=== PATIENT | female | born 1995 | race Caucasian/White ===

== ENCOUNTER 2016-07-08 15:18 | Emergency (ER) | payer BC ==
[2016-07-08] MEDS: Albuterol 0.083% 2.5 MG/3 ML Neb Soln NEB ONE (15:37)
[2016-07-08] MEDS: Famotidine 20 MG/2 ML SDV IVPUSH ONE (15:48)
[2016-07-08] MEDS: EPINEPHrine 1:1000 1 MG/ML SDV IM ONE (15:48)
[2016-07-08] MEDS: Sodium Chloride 0.9% 10 ML Syringe FLUSH PRN (15:49)
[2016-07-08] MEDS: LORazepam 2 MG/ML MDV IVPUSH ONE ×2 (15:49→16:30)
[2016-07-08] MEDS: Loratadine 10 MG Tab PO ONE (15:49)
[2016-07-08] MEDS: Sodium Chloride 0.9% 500 ML IV ONE (15:50)
--- NOTE | 2016-07-08 15:57 | EDM.PDOC ---
ED HPI Allergic Reaction - General Chief Complaint: Allergic Reaction Stated Complaint: CAME IN FROM THE CLINIC Time Seen by Provider: 07/08/16 15:19 Source of Information: Reports: Patient, RN notes reviewed - History of Present Illness INITIAL COMMENTS - FREE TEXT/NARRATIVE: 21-year-old female has been referred here from the walk-in clinic for perioral swelling, swelling of the tongue and difficulty breathing. This just started about 20-30 minutes ago. Because of a prior severe allergic reaction she did go immediately to the walk-in clinic. They did treat her immediately with 50 mg Benadryl by mouth, Solu-Medrol 125 mg IM, and EpiPen x1. Patient was then brought here. SHe continues to have swelling primarily of the right lower lip, tongue and perceived itchiness scratchiness and irritation of her throat along with shortness of breath. Skin of her upper body does feel somewhat itchy. So far no hives or uticaria. She does have history of a number of sensitivities and allergies, no documented history of asthma. She has Had some mild cough and cold symptoms for a week or 2. No recent fever or chills. No recent sore throat up until this afternoon. - Related Data Allergies/ADRs: Allergies Allergy/AdvReac Type Severity Reaction Status Date / Time latex Allergy Anaphylactic Verified 07/08/16 15:26 Shock iv contrast Allergy Anaphylactic Uncoded 07/08/16 15:26 Shock Home Meds: Home Meds ALPRAZolam [Alprazolam ER] 1 mg PO DAILY PRN 07/08/16 [History] Albuterol Sulfate [Proair Hfa] 2 puff IH Q4H PRN 07/08/16 [History] EPINEPHrine [Epipen] 0.3 mg IM ONETIME #1 pen 07/08/16 [Rx] Sertraline HCl [Zoloft] 100 mg PO DAILY 07/08/16 [History] Past Medical History Genitourinary History: Reports: Pyelonephritis Psychiatric History: Reports: Anxiety - Past Surgical History Female Surgical History: Reports: Ureteral stent Social & Family History - Tobacco Use Smoking Status *Q: Never Smoker - Caffeine Use Caffeine Use: Reports: Coffee - Recreational Drug Use Recreational Drug Use: No ED ROS ALLERGIC REACTION - Review of Systems Review Of Systems: See Below Constitutional: Denies: fever, chills HEENT: Reports: Sinus problem (there has been mild nasal and sinus congestion), Throat pain (throat feels scratchy), Throat swelling (throat feels swollen), Other (tongue feels swollen, swelling of the right lower lip) Respiratory: Reports: shortness of breath, wheezing Cardiovascular: Denies: Chest pain GI/Abdominal: Denies: Abdominal pain Musculoskeletal: Denies: shoulder pain, arm pain Skin: Denies: rash, erythema Neurological: Reports: dizziness ED EXAM GENERAL NO PERIP PULSE - Physical Exam Exam: See Below General Appearance: alert, anxious Eye Exam: bilateral eye: PERRL Nose: normal inspection Throat/Mouth: Normal oropharynx, No airway compromise, Other (there may be slight swelling of the tongue) Head: facial swelling (there is swelling of the right lower lip, no other facial swelling visible at this time) Respiratory/Chest: lungs clear, respiratory distress (moderate tachypnea). No: rhonchi, wheezing, stridor Cardiovascular: regular rate, rhythm Extremities: normal inspection, normal range of motion Neurological: alert, oriented, no motor/sensory deficits Skin Exam: Warm, Dry, Normal color, No rash, Other (no rash or hives at time of initial exam) Course - Vital Signs Last Recorded V/S: Last Vital Signs Temp 97.3 F 07/08/16 15:20 Pulse 89 07/08/16 18:05 Resp 21 H 07/08/16 18:05 BP 119/71 07/08/16 18:05 Pulse Ox 99 07/08/16 18:05 - Orders/Labs/Meds Orders: Active Orders 24 hr Category Date Time Status Peripheral IV Care [RC] . DIRECTED Care 07/08/16 15:26 Active RT Aerosol Therapy [RC] ASDIRECTED Care 07/08/16 15:33 Active Sodium Chloride 0.9% [Saline Flush] Med 07/08/16 15:26 Active 10 ml FLUSH ASDIRECTED PRN Peripheral IV Insertion Adult [OM.PC] Stat Oth 07/08/16 15:26 Ordered Medication Orders Sodium Chloride (Saline Flush) 10 ml FLUSH ASDIRECTED PRN PRN Reason: Keep Vein Open Last Admin: 07/08/16 15:49 Dose: 10 ml Meds: Medications Generic Name Dose Route Start Last Admin Trade Name Freq PRN Reason Stop Dose Admin Sodium Chloride 10 ml 07/08/16 15:26 07/08/16 15:49 Saline Flush FLUSH 10 ml ASDIRECTED PRN Administration Keep Vein Open Discontinued Medications Generic Name Dose Route Start Last Admin Trade Name Kim PRN Reason Stop Dose Admin Albuterol 2.5 mg 07/08/16 15:33 07/08/16 15:37 Proventil Neb Soln NEB 07/08/16 15:34 2.5 mg ONETIME ONE Administration Epinephrine HCl 0.3 mg 07/08/16 15:26 07/08/16 15:48 Adrenalin 1:1000 IM 07/08/16 15:27 0.3 mg ONETIME ONE Administration Famotidine 20 mg 07/08/16 15:26 07/08/16 15:48 Pepcid IVPUSH 07/08/16 15:27 20 mg ONETIME ONE Administration Sodium Chloride 500 mls @ 999 mls/hr 07/08/16 15:26 07/08/16 15:50 Normal Saline IV 07/08/16 15:56 999 mls/hr .BOLUS ONE Administration Loratadine 10 mg 07/08/16 15:26 07/08/16 15:49 Claritin PO 07/08/16 15:27 10 mg ONETIME ONE Administration Lorazepam 0.5 mg 07/08/16 15:33 07/08/16 15:49 Ativan IVPUSH 07/08/16 15:34 0.5 mg ONETIME ONE Administration Lorazepam 0.5 mg 07/08/16 16:26 07/08/16 16:30 Ativan IVPUSH 07/08/16 16:27 0.5 mg ONETIME ONE Administration - Re-Assessments/Exams Free Text/Narrative Re-Assessment/Exam: 07/08/16 16:05: patient was treated at walk-in clinic as documented with Benadryl 50 mg by mouth, EpiPen x1, Solu-Medrol 125 mg IM. We have further treated her with Claritin 10 mg by mouth, Pepcid 20 mg IV, a further dose of epi 0.3 mils 1-1000 IM and also Ativan 0.5 mg IV. The swelling of her mouth has lessened mildly. Her throat still does feel somewhat scratchy but improved from arrival. No we also did give an albuterol treatment a short time ago and that also seems to help her. Order her chest feels tight, she is still very anxious and actually hyperventilating more now from arrival. With that her hands are known from the Ativan was just given a few minutes ago so that really has not had time to start working for her. 16:20. The numbness of her hands are somewhat better. Pharynx continues to not be inflamed. Her tongue is not visibly swollen at this time. She continues to have some swelling of the right lower lip. Continues to have no rash or erythema of her skin. Continues to move air well with sats of 100% but still tachypneic and still moderately anxious. We'll give further dose of 0.5 mg Ativan IV. 07/08/16 18:14. breathing completely back to normal, her throat feels like that also is back to normal. She continues to have no rash or hives. Her skin itchiness is long gone. Her chest no longer feels tight. She does feel up to going home, discharge instructions as documented Departure - Departure Time of Disposition: 18:19 Disposition: Home, Self-Care 01 Condition: fair Clinical Impression: Allergic reaction Qualifiers: Encounter type: initial encounter Qualified Code(s): T78.40XA - Allergy, unspecified, initial encounter Prescriptions: EPINEPHrine [Epipen] 0.3 mg IM ONETIME #1 pen Instructions: Anaphylactic Reaction, [id number] Referrals: Sarah Thompson PA-C [Primary Care Provider] - Forms: ED Department Discharge Additional Instructions: Claritin 10 mg daily tomorrow and Tuesday, prednisone 40 mg this evening and then 40 mg again tomorrow morning, 20 mg Tuesday morning, avoid further exposure to potential allergic substances, followup clinic as needed return to ED as needed, prescription has been provided for EpiPen to use if needed for any further severe allergic reaction - My Orders Last 24 Hours: My Active Orders 07/08/16 15:26 Peripheral IV Care [RC] . DIRECTED Sodium Chloride 0.9% [Saline Flush] 10 ml FLUSH ASDIRECTED PRN Peripheral IV Insertion Adult [OM.PC] Stat 07/08/16 15:33 RT Aerosol Therapy [RC] ASDIRECTED - Assessment/Plan Last 24 Hours: My Active Orders 07/08/16 15:26 Peripheral IV Care [RC] . DIRECTED Sodium Chloride 0.9% [Saline Flush] 10 ml FLUSH ASDIRECTED PRN Peripheral IV Insertion Adult [OM.PC] Stat 07/08/16 15:33 RT Aerosol Therapy [RC] ASDIRECTED
[2016-07-08 18:23] VITALS: BP 119/71
== END 2016-07-08 18:30 | disposition home or self-care (01) ==
LOC: JD.ED 15:18
DX: T78.40XA Allergy, unspecified, initial encounter (principal); Z91.040 Latex allergy status; Z88.7 Allergy status to serum and vaccine; Z79.899 Other long term (current) drug therapy
CPT/HCPCS: 94664; 96361; 96372; 96374; 96375; 96376; 99285; A9270; J0171; J2060; J7040; J7050; 99284

== ENCOUNTER 2016-09-30 16:48 | Emergency (ER) | payer BC ==
[2016-09-30] MEDS ORDERED: Sodium Chloride 0.9% 10 ML Syringe FLUSH PRN (16:57)
[2016-09-30] MEDS ORDERED: Famotidine 20 MG/2 ML SDV IVPUSH ONE (16:57)
[2016-09-30] MEDS ORDERED: methylPREDNISolone Sodium Succinate 125 MG/2 ML SDV IVPUSH ONE (16:57)
[2016-09-30] MEDS ORDERED: diphenhydrAMINE 50 MG/ML SDV IVPUSH ONE (16:57)
[2016-09-30] MEDS ORDERED: methylPREDNISolone Sodium Succinate 40 MG/1 ML SDV IVPUSH ONE (17:02)
--- NOTE | 2016-09-30 17:02 | EDM.PDOC ---
<RamiroDarrell Omer - Last Filed: 09/30/16 17:01> ED HPI GENERAL MEDICAL PROBLEM - General Chief Complaint: Allergic Reaction Stated Complaint: ALLERGIC REACTION Time Seen by Provider: 09/30/16 17:01 - Related Data Allergies Allergy/AdvReac Type Severity Reaction Status Date / Time Iodinated Contrast Media - Allergy Anaphylactic Verified 07/09/16 06:47 Oral and Shock latex Allergy Anaphylactic Verified 07/08/16 15:26 Shock Home Meds: Home Meds ALPRAZolam [Alprazolam ER] 1 mg PO DAILY PRN 07/08/16 [History] Albuterol Sulfate [Proair Hfa] 2 puff IH Q4H PRN 07/08/16 [History] EPINEPHrine [Epipen] 0.3 mg IM ONETIME #1 pen 07/08/16 [Rx] Sertraline HCl [Zoloft] 100 mg PO DAILY 07/08/16 [History] Past Medical History Respiratory History: Reports: Other (See Below) Other Respiratory History: history of similar allergic reactions unknown cause Genitourinary History: Reports: Pyelonephritis Psychiatric History: Reports: Anxiety - Past Surgical History Female Surgical History: Reports: Ureteral Stent Social & Family History - Tobacco Use Smoking Status *Q: Never Smoker - Caffeine Use Caffeine Use: Reports: Coffee, Soda - Recreational Drug Use Recreational Drug Use: No Course - Vital Signs Last Recorded V/S: Last Vital Signs Temp 97.9 F 09/30/16 16:51 Pulse 127 H 09/30/16 16:51 Resp 18 09/30/16 16:51 BP 146/91 H 09/30/16 16:51 Pulse Ox 100 09/30/16 16:51 - Orders/Labs/Meds Orders: Active Orders 24 hr Category Date Time Status Peripheral IV Care [RC] . DIRECTED Care 09/30/16 16:57 Active Sodium Chloride 0.9% [Saline Flush] Med 09/30/16 16:57 Active 10 ml FLUSH ASDIRECTED PRN Peripheral IV Insertion Adult [OM.PC] Stat Oth 09/30/16 16:57 Ordered Medication Orders Sodium Chloride (Saline Flush) 10 ml FLUSH ASDIRECTED PRN PRN Reason: Keep Vein Open Last Admin: 09/30/16 17:17 Dose: 10 ml Meds: Medications Generic Name Dose Route Start Last Admin Trade Name Freq PRN Reason Stop Dose Admin Sodium Chloride 10 ml 09/30/16 16:57 09/30/16 17:17 Saline Flush FLUSH 10 ml ASDIRECTED PRN Administration Keep Vein Open Discontinued Medications Generic Name Dose Route Start Last Admin Trade Name Emanuelq PRN Reason Stop Dose Admin Diphenhydramine HCl 50 mg 09/30/16 16:57 09/30/16 17:07 Benadryl IVPUSH 09/30/16 16:58 50 mg ONETIME ONE Administration Famotidine 20 mg 09/30/16 16:57 09/30/16 17:10 Pepcid IVPUSH 09/30/16 16:58 20 mg ONETIME ONE Administration Methylprednisolone Sodium Succinate 125 mg 09/30/16 16:57 09/30/16 17:18 Solu-Medrol IVPUSH 09/30/16 16:58 Not Given ONETIME ONE Methylprednisolone Sodium Succinate 80 mg 09/30/16 17:02 Solu-Medrol IVPUSH 09/30/16 17:03 ONETIME ONE Departure - Departure Disposition: Home, Self-Care 01 Clinical Impression: Allergic reaction Qualifiers: Encounter type: initial encounter Qualified Code(s): T78.40XA - Allergy, unspecified, initial encounter - Discharge Information Forms: ED Department Discharge Additional Instructions: Follow-up with Dr. Teran on Tuesday Return to ER if symptoms worsen Take epi-pen, Prednisone, and Benadryl 50mg at onset of allergy symptoms and return to nearest ER You have 1 refill remaining on your epi-pen Benadryl 50mg every 6 hours as needed for mild allergy symptoms Take pepcid 20mg daily - My Orders Last 24 Hours: My Active Orders 09/30/16 16:57 Peripheral IV Care [RC] . DIRECTED Sodium Chloride 0.9% [Saline Flush] 10 ml FLUSH ASDIRECTED PRN Peripheral IV Insertion Adult [OM.PC] Stat - Assessment/Plan Last 24 Hours: My Active Orders 09/30/16 16:57 Peripheral IV Care [RC] . DIRECTED Sodium Chloride 0.9% [Saline Flush] 10 ml FLUSH ASDIRECTED PRN Peripheral IV Insertion Adult [OM.PC] Stat <Lorraine Xavier - Last Filed: 09/30/16 18:07> ED HPI GENERAL MEDICAL PROBLEM - General Source of Information: Reports: Patient, RN Notes Reviewed History Limitations: Reports: No Limitations - History of Present Illness INITIAL COMMENTS - FREE TEXT/NARRATIVE: 21 year old female presents to the ED today with complaints of allergic reaction. She reports shortness of breath and swelling of her tongue. Symptoms came on about 30-40 minutes prior to arrival. She took two epi-pens and 40mg of Prednisone about 20 minutes prior to arrival to the ED. She has been having frequent allergic reactions like this with no known cause. She reports negative skin allergy testing. She was seen in the walk-in clinic today for a sore throat and was diagnosed with strep. She was given an injection of PCN around 11am-noon today. Allergy symptoms did not start until after 4pm. She's had no previous reactions to PCNs. She is very anxious. She had similar symptoms about 3-4 weeks ago in [place] and was admitted to the ICU. She was not intubated. She said they admitted her because her respiratory rate was high. ED ROS ALLERGIC REACTION - Review of Systems Review Of Systems: See Below Constitutional: Reports: No Symptoms. Denies: Fever, Chills HEENT: Reports: Throat Pain, Throat Swelling, Other (tongue swelling) Respiratory: Reports: Shortness of Breath. Denies: Wheezing Cardiovascular: Reports: No Symptoms. Denies: Chest Pain Skin: Reports: No Symptoms. Denies: Rash Psychiatric: Reports: Anxiety ED EXAM GENERAL NO PERIP PULSE - Physical Exam Exam: See Below Exam Limited By: No Limitations General Appearance: Alert, WD/WN, No Apparent Distress, Anxious Nose: Normal Inspection, Normal Mucosa Throat/Mouth: Normal Inspection, Normal Lips, Other (the patient is sticking her tongue out. However, on exam she has absolutely no angioedema or swelling of the tongue) Head: Atraumatic, Normocephalic. No: Facial Swelling Neck: Normal Inspection, Supple, Non-Tender, Full Range of Motion Respiratory/Chest: No Respiratory Distress, Lungs Clear, Normal Breath Sounds, No Accessory Muscle Use, Chest Non-Tender, Other (tachypnic at times. Oxygen saturation 100% on room air) Cardiovascular: Normal Peripheral Pulses, No Murmur, Tachycardia Neurological: Alert, Oriented, Normal Cognition Psychiatric: Anxious Skin Exam: Warm, Dry, Intact, No Rash Course - Re-Assessments/Exams Free Text/Narrative Re-Assessment/Exam: Tachycardia explained by 2 doses of epi-pen TECHNICAL ADVISOR. The patient's symptoms significantly improved with Solu-medrol 80mg IV, Pepcid 20mg IV, and Benadryl 50mg IV. On arrival her exam was normal. She had no angioedema. Lungs were clear with no wheezing or stridor. This is the first time I have seen this patient for this complaint so I do not have any prior experience with her, however I suspect that her symptoms may be related to anxiety more so than anaphylaxis. However, she was treated for allergic reaction due to her history. She will need to f/u with her PCP for further management. I also do not feel this reaction was from the PCN she received earlier today as it was at least 4 hours between administration and symptom onset. She has a refill on her epi-pen and prednisone at her Pharmacy so no prescriptions will be provided today. She was educated on return precautions. Departure - Departure Time of Disposition: 18:00 Condition: good
[2016-09-30 18:24] VITALS: BP 132/78
== END 2016-09-30 18:20 | disposition home or self-care (01) ==
LOC: JD.ED 16:48
DX: T78.40XA Allergy, unspecified, initial encounter (principal); Z79.899 Other long term (current) drug therapy; Z91.040 Latex allergy status; Z91.041 Radiographic dye allergy status
CPT/HCPCS: 96374; 96375; 99283; J1200; J2920; J7050; 99284

== ENCOUNTER 2016-11-04 07:02 | Day surgery (SDC) | payer BC ==
--- NOTE | 2016-10-19 06:41 | HP ---
DATE OF ADMISSION: 11/04/2016 HISTORY OF PRESENT ILLNESS: This is the first orthopedic outpatient admission for surgery for this 21-year- old female, who is being admitted for a surgical release of a right carpal tunnel syndrome problem. The patient has had [id number] distress in and around the wrist area. She has been treated with nighttime splints, medications, therapy, and has had failure of treatment. Recent nerve conduction studies showed no nerve damage, but with the failure of symptoms and continued problems, the patient is being scheduled for a right carpal tunnel release. PAST MEDICAL HISTORY: Allergies: No known drug allergies. She has been a healthy 21-year-old female. CURRENT MEDICATIONS: Include 1. Allergy medications, generalized and also inhalers. 2. She is also on alprazolam for anxiety. PAST SURGICAL HISTORY: Positive. She has had previous surgery. No anesthesia complications. She has a negative bleeding history and negative blood clot history. SOCIAL HISTORY: She is a non-smoker. Alcohol is occasional/rare. PHYSICAL EXAMINATION: GENERAL: Today reveals a well-developed, well-nourished, 21-year-old female in moderate distress. HEAD, EYES, EARS, NOSE, AND THROAT: Normocephalic. NECK: Supple. CHEST: Clear. COR: Regular rate. ABDOMEN: Soft. GENITOURINARY: Intact. EXTREMITIES: Examination of the right wrist reveals significant Tinel examination of the median nerve of right wrist. She has positive small nodular swellings with hyperextension of the wrist secondary to tenosynovitis of the tendons and fluid accumulation. The patient has positive numbness and tingling to the palmar area and forearm region. ASSESSMENT: The overall impression is carpal tunnel syndrome of right wrist, failed treatment. PLAN: For the patient to undergo right carpal tunnel release. MMODAL /[id number]
[~2016-11-04 07:02] MED LIST: Lactated Ringers 1,000 ML IV SCH; Lidocaine 1%/Sod Bicarbonate in NS 8.4% 1 ML Syringe PRN; Sodium Chloride 0.9% 10 ML Syringe FLUSH PRN
[2016-11-04] MEDS ORDERED: fentaNYL 100 MCG/2 ML SDV ONE (07:20)
[2016-11-04] MEDS ORDERED: Propofol 200 MG/20 ML SDV ONE (07:20)
[2016-11-04] MEDS ORDERED: Midazolam 1 MG/ML 2 ML SDV ONE (07:20)
[2016-11-04] MEDS ORDERED: Lidocaine 1% 4 ML ONE (07:20)
--- NOTE | 2016-11-04 07:20 | PCM.PREANE ---
Preanesthetic Assessment - Anesthesia/Transfusion/Family Hx Anesthesia History: Prior Anesthesia Without Reaction Family History of Anesthesia Reaction: No Transfusion History: No Prior Transfusion(s) - Review of Systems General: No Symptoms Pulmonary: No Symptoms Cardiovascular: No Symptoms Gastrointestinal: No symptoms Neurological: Numbness (right hand) Other: Reports: None - Physical Assessment NPO Status Date: 11/03/16 NPO Status Time: 00:00 Pulse: 90 O2 Sat by Pulse Oximetry: 97 Respiratory Rate: 16 Blood Pressure: 129/87 Temperature: 36.6 C Height: 1.65 m Weight: 79.832 kg ASA Class: 2 Mental Status: Alert & Oriented x3 Airway Class: Mallampati = 2 Dentition: Reports: Normal Dentition Thyro-Mental Finger Breadths: 3 Mouth Opening Finger Breadths: 3 ROM/Head Extension: Full Lungs: Clear to auscultation, Normal respiratory effort Cardiovascular: Regular Rate, Regular Rhythm, No Murmurs - Allergies Allergies/Adverse Reactions: Allergies Allergy/AdvReac Type Severity Reaction Status Date / Time Iodinated Contrast- Oral and Allergy Anaphylactic Verified 11/03/16 13:36 IV Dye Shock [Iodinated Contrast Media - Oral and] latex Allergy Anaphylactic Verified 11/03/16 13:36 Shock - Blood Blood Available: No Product(s) Available: None - Anesthesia Plan Pre-Op Medication Ordered: None - Acknowledgements Anesthesia Type Planned: JOSE Pt an Appropriate Candidate for the Planned Anesthesia: Yes Alternatives and Risks of Anesthesia Discussed w Pt/Guardian: Yes Pt/Guardian Understands and Agrees with Anesthesia Plan: Yes PreAnesthesia Questionnaire Respiratory History: Reports: Asthma Other Respiratory History: history of similar allergic reactions unknown cause Genitourinary History: Reports: Pyelonephritis Other Genitourinary History: urethral stent Psychiatric History: Reports: Anxiety - Past Surgical History Other HEENT Surgeries/Procedures: allergic reaction - SUBSTANCE USE Smoking Status *Q: Former Smoker Recreational Drug Use History: No - HOME MEDS Home Medications: Home Meds ALPRAZolam [Alprazolam ER] 1 mg PO DAILY PRN 07/08/16 [History] Albuterol Sulfate [Proair Hfa] 2 puff IH Q4H PRN 07/08/16 [History] EPINEPHrine [Epipen] 0.3 mg IM ONETIME #1 pen 07/08/16 [Rx] Sertraline HCl [Zoloft] 100 mg PO DAILY 07/08/16 [History] - CURRENT (IN HOUSE) MEDS Current Meds: Current Medications Lactated Ringer's (Ringers, Lactated) 1,000 mls @ 125 mls/hr IV ASDIRECTED MERVIN Stop: 11/04/16 23:00 Lidocaine/Sodium Bicarbonate (Buffered Lidocaine 1% In Ns 8.4%) 0.25 ml .XX ONETIME PRN PRN Reason: Prior to IV Start Stop: 11/04/16 18:00 Sodium Chloride (Saline Flush) 10 ml FLUSH ASDIRECTED PRN PRN Reason: Keep Vein Open Stop: 11/04/16 18:00
[2016-11-04] MEDS ORDERED: ceFAZolin 1 GM Vial ONE (07:21)
[2016-11-04] MEDS ORDERED: Lidocaine 0.5% 50 ML SDV ONE (07:21)
[2016-11-04] MEDS ORDERED: Sodium Bicarbonate 8.4% 50 MEQ/50 ML SDV ONE (07:21)
--- NOTE | 2016-11-04 07:40 | HP ---
DATE OF ADMISSION: 11/04/2016 PAST SURGICAL HISTORY: Positive. The patient has had previous surgery, which included closure of a ureter fistula along with wisdom teeth extraction. No anesthesia complications noted. MMODAL /[id number]
[2016-11-04] MEDS ORDERED: Ondansetron 4 MG/2 ML SDV IVPUSH PRN (07:43)
[2016-11-04] MEDS ORDERED: Acetaminophen/HYDROcodone 325-5 MG Tab PO PRN (07:43)
[2016-11-04] MEDS ORDERED: Ketorolac 30 MG/ML SDV IVPUSH PRN ×2 (07:43→08:57)
[2016-11-04] MEDS ORDERED: Dexamethasone 4 MG/ML 5 ML MDV ONE (08:40)
[2016-11-04] MEDS ORDERED: fentaNYL 100 MCG/2 ML SDV IVPUSH PRN (08:57)
[2016-11-04] MEDS: HYDROmorphone 0.5 MG/0.5 ML Syringe IVPUSH PRN ×2 (09:06→09:23)
[2016-11-04 09:59] VITALS: BP 126/72
--- NOTE | 2016-11-04 15:07 | OR ---
DATE OF OPERATION: 11/04/2016 SURGEON: Travis Beaver MD PREOPERATIVE DIAGNOSIS: Acute carpal tunnel syndrome, right wrist, failed treatment. POSTOPERATIVE DIAGNOSIS: Acute carpal tunnel syndrome, right wrist, failed treatment. ANESTHESIA: Luis block with light sedation. OPERATION PERFORMED: Right wrist carpal tunnel ligament release. DESCRIPTION OF PROCEDURE: The patient was taken to the operative room in supine position and was placed under a light sedation with a Luis block anesthesia to the right upper extremity. After adequate anesthesia, the operation proceeded with prepping and draping of the right hand by standard technique. After prepping and draping, the operation proceeded with marking of the skin for the surgical approach. Using the radial aspect of the ring finger and paralleling the arm itself across the carpal tunnel region, the incision began approximately 1 cm distal to the flexion crease and extended for approximately 1.5 cm. Penetrating through the skin and the subcutaneous tissues, these were dissected off the palmar fascia which was then released by direct visualization, exposing the carpal tunnel ligament. Once the ligament was exposed, the operation then proceeded with direct visual release of the ligament, staying to the ulnar aspect of the median nerve. The ligament was released up into the wrist area, just proximal to the flexion crease using the mini instruments. Once that was completed, the operation then proceeded to the distal release down to the palmar fat pad. The release was carried out by direct visualization distally. Of note, the patient had accessary muscle across the carpal ligament itself, almost the entire surface, from the thenar to the hypothenar eminence. By just sweeping the 15 blade surgical knife across the area and exposing the ligament itself, created a nice entry area for the release. Once the release was completed, it was checked distally and proximally to make sure no fibrous bands remained. The vasa vasorum returned very nicely to the nerve itself on direct inspection. The operation then proceeded with final irrigation of the wound area. The skin was closed with 4-0 Prolene horizontal sutures and then 5-0 Prolene vertical sutures. The patient tolerated this whole procedure well. She left the operating room in a stable condition with the standard dressings and splint. ESTIMATED BLOOD LOSS: MMODAL /[id number]
== END 2016-11-04 09:50 | disposition home or self-care (01) ==
LOC: JD.SDS 07:02
PROVIDERS: ATTEND Specialist
DX: G56.01 Carpal tunnel syndrome, right upper limb (principal); F41.9 Anxiety disorder, unspecified; J45.909 Unspecified asthma, uncomplicated; Z91.040 Latex allergy status; Z91.041 Radiographic dye allergy status; Z79.899 Other long term (current) drug therapy
CPT/HCPCS: 64721; 81025; A9270; J0690; J1100; J1170; J1885; J2250; J3010; J7050; J7120; 01810; J2704

== ENCOUNTER 2017-02-17 20:16 | Emergency (ER) | payer BC ==
[2017-02-17 20:28] VITALS: BP 140/83
[2017-02-17] MEDS ORDERED: methylPREDNISolone Sodium Succinate 125 MG/2 ML SDV IVPUSH ONE (20:45)
--- NOTE | 2017-02-17 20:45 | EDM.PDOC ---
ED HPI GENERAL MEDICAL PROBLEM - General Chief Complaint: Allergic Reaction Stated Complaint: Allergic reaction Time Seen by Provider: 02/17/17 20:25 Source of Information: Reports: Patient, RN Notes Reviewed History Limitations: Reports: No Limitations - History of Present Illness INITIAL COMMENTS - FREE TEXT/NARRATIVE: 21 year old female resents to the ED with sudden onset of allergic reaction symptoms. Symptoms started about 30 minutes prior to arrival. She has hives to her arms and neck. She has a left swollen eye lid. She feels short of breath and nauseated. She has no lip swelling or sensation of throat swelling. She is not coughing. She has a history of anaphylaxis of unclear etiology. She recently went to [facility] and was given orders for lab draw to be done with her next allergic reaction. She has the orders and test tubes with her. She took Benadryl and an epi-pen prior to arrival. - Related Data Allergies Allergy/AdvReac Type Severity Reaction Status Date / Time Iodinated Contrast- Oral and Allergy Anaphylactic Verified 02/17/17 20:33 IV Dye Shock [Iodinated Contrast Media - Oral and] latex Allergy Anaphylactic Verified 02/17/17 20:33 Shock Home Meds: Home Meds ALPRAZolam [Alprazolam ER] 1 mg PO DAILY PRN 07/08/16 [History] Albuterol Sulfate [Proair Hfa] 2 puff IH Q4H PRN 07/08/16 [History] EPINEPHrine [Epipen] 0.3 mg IM ONETIME #1 pen 07/08/16 [Rx] Venlafaxine [Effexor XR] 37.5 mg PO DAILY 02/17/17 [History] predniSONE [Prednisone] 40 mg PO DAILY #8 tablet 02/17/17 [Rx] Past Medical History Respiratory History: Reports: Other (See Below) Other Respiratory History: history of similar allergic reactions unknown cause Genitourinary History: Reports: Pyelonephritis Other Genitourinary History: urethral stent Psychiatric History: Reports: Anxiety - Past Surgical History Other HEENT Surgeries/Procedures: allergic reaction Social & Family History - Tobacco Use Smoking Status *Q: Never Smoker - Caffeine Use Caffeine Use: Reports: Coffee, Soda - Recreational Drug Use Recreational Drug Use: No Drug Use in Last 12 Months: No ED ROS ALLERGIC REACTION - Review of Systems Review Of Systems: See Below Constitutional: Reports: Diaphoresis. Denies: Fever, Chills HEENT: Reports: Other (left eye itching ). Denies: Eye Pain, Rhinitis, Sinus Problem, Throat Pain, Throat Swelling Respiratory: Reports: Shortness of Breath. Denies: Wheezing, Cough Cardiovascular: Reports: No Symptoms. Denies: Chest Pain GI/Abdominal: Reports: Nausea. Denies: Diarrhea, Vomiting Skin: Reports: Rash ED EXAM GENERAL NO PERIP PULSE - Physical Exam Exam: See Below Exam Limited By: No Limitations General Appearance: Alert, WD/WN, No Apparent Distress Eye Exam: Left Eye: Other (left eye lid is edematous. ), Bilateral Eye: EOMI, PERRL Throat/Mouth: Normal Inspection, Normal Lips, Normal Oropharynx, Normal Voice, No Airway Compromise. No: Dysphagia, Inflammation, Perioral Cyanosis Head: Atraumatic, Facial Swelling (left orbit ) Neck: Normal Inspection, Supple, Non-Tender, Full Range of Motion Respiratory/Chest: No Respiratory Distress, Lungs Clear, Normal Breath Sounds, No Accessory Muscle Use, Chest Non-Tender. No: Rhonchi, Wheezing, Stridor, Splinting Cardiovascular: No Murmur, Tachycardia GI/Abdominal: Normal Bowel Sounds, Soft, Non-Tender Neurological: Alert, Oriented, Normal Cognition Skin Exam: Warm, Dry, Intact, Other (no hives or rash appreciated on exam) Course - Vital Signs Last Recorded V/S: Last Vital Signs Temp 97 F 02/17/17 20:23 Pulse 126 H 02/17/17 20:23 Resp 20 02/17/17 20:23 BP 140/83 02/17/17 20:23 Pulse Ox 100 02/17/17 20:23 - Orders/Labs/Meds Orders: Active Orders 24 hr Category Date Time Status Peripheral IV Care [RC] . DIRECTED Care 02/17/17 20:46 Active Sodium Chloride 0.9% [Saline Flush] Med 02/17/17 20:46 Active 10 ml FLUSH ASDIRECTED PRN Peripheral IV Insertion Adult [OM.PC] Stat Oth 02/17/17 20:45 Ordered Medication Orders Sodium Chloride (Saline Flush) 10 ml FLUSH ASDIRECTED PRN PRN Reason: Keep Vein Open Meds: Medications Generic Name Dose Route Start Last Admin Trade Name Freq PRN Reason Stop Dose Admin Sodium Chloride 10 ml 02/17/17 20:46 Saline Flush FLUSH ASDIRECTED PRN Keep Vein Open Discontinued Medications Generic Name Dose Route Start Last Admin Trade Name Kim PRN Reason Stop Dose Admin Famotidine 20 mg 02/17/17 20:46 Pepcid IVPUSH 02/17/17 20:47 ONETIME ONE Methylprednisolone Sodium Succinate 125 mg 02/17/17 20:45 Solu-Medrol IVPUSH 02/17/17 20:46 ONETIME ONE - Re-Assessments/Exams Free Text/Narrative Re-Assessment/Exam: Nursing staff attempted 4 times for IV and were unsuccessful. IV meds cancelled. Patient is stable. Will give 40mg of Prednisone PO now and put her on an additional 4 day of prednisone. She is to f/u with Dr. Teran tomorrow morning to complete testing for [facility]. Lab did draw her blood and urine was obtained for required testing for [facility]. She will be discharged home. She understands return precautions. Departure - Departure Time of Disposition: 21:21 Disposition: Home, Self-Care 01 Condition: Good Clinical Impression: Allergic reaction Qualifiers: Encounter type: initial encounter Qualified Code(s): T78.40XA - Allergy, unspecified, initial encounter - Discharge Information Prescriptions: predniSONE [Prednisone] 40 mg PO DAILY #8 tablet Referrals: Dana Teran [Primary Care Provider] - Forms: ED Department Discharge Additional Instructions: Benadryl 1-2 tabs every 6 hours Prednisone 40mg daily for 4 more days, start tomorrow Continue instructions per [facility] doctor Return to ER with new or worsening symptoms Follow-up with Dr. Teran tomorrow morning for recheck Cool, moist compress to eye for comfort - My Orders Last 24 Hours: My Active Orders 02/17/17 20:45 Peripheral IV Insertion Adult [OM.PC] Stat 02/17/17 20:46 Peripheral IV Care [RC] . DIRECTED Sodium Chloride 0.9% [Saline Flush] 10 ml FLUSH ASDIRECTED PRN - Assessment/Plan Last 24 Hours: My Active Orders 02/17/17 20:45 Peripheral IV Insertion Adult [OM.PC] Stat 02/17/17 20:46 Peripheral IV Care [RC] . DIRECTED Sodium Chloride 0.9% [Saline Flush] 10 ml FLUSH ASDIRECTED PRN
[2017-02-17] MEDS ORDERED: Sodium Chloride 0.9% 10 ML Syringe FLUSH PRN (20:46)
[2017-02-17] MEDS ORDERED: Famotidine 20 MG/2 ML SDV IVPUSH ONE (20:46)
[2017-02-17] MEDS ORDERED: predniSONE 20 MG Tab PO ONE (21:20)
== END 2017-02-17 21:35 | disposition home or self-care (01) ==
LOC: JD.ED 20:16
DX: T78.40XA Allergy, unspecified, initial encounter (principal); Z79.899 Other long term (current) drug therapy
CPT/HCPCS: 36415; 99283; A9270